=== PATIENT | male | born 1940 | race Caucasian/White ===

== ENCOUNTER 2017-03-22 22:06 | Emergency (ER) | payer MEDICARE, OTHER ==
--- NOTE | 2017-03-23 00:28 | ED Physician Documentation ---
History of Present Illness - Stated complaint Stated Complaint: R LEG PX - Chief complaint Chief Complaint: Ext Problem - History obtained from History obtained from: Patient - History of Present Illness Timing: Today Pain level max: 0 Pain level now: 0 - Additonal information Additional information: this evening, patient noticed a painless mass on his inner upper right thigh. He was mostly concerned that this might be a hematoma, as he is on blood filling medication including Eliquis and, once per week, plavix. Review of Systems Constitutional: reports: Reviewed and negative Cardiac: reports: Reviewed and negative Respiratory: reports: Reviewed and negative GI: reports: Reviewed and negative Musculoskeletal: reports: Reviewed and negative PD PAST MEDICAL HISTORY - Past Medical History Past Medical History: Yes Cardiovascular: Hypertension, Atrial fibrillation Respiratory: Pneumonia - Past Surgical History Past Surgical History: Yes Ortho: Knee replacement Cardiovascular: Coronary stent - Present Medications Home Medications: Ambulatory Orders Medication Instructions Recorded Confirmed Apixaban [Eliquis] 5 mg PO DAILY 06/06/16 06/12/16 Lisinopril 10 mg PO DAILY 06/06/16 06/12/16 Metoprolol Succinate 25 mg PO DAILY 06/06/16 06/12/16 oxyCODONE [Roxicodone] 5 mg PO DAILY 06/06/16 06/12/16 Carditone 06/12/16 - Allergies Allergies/Adverse Reactions: Allergies Allergy/AdvReac Type Severity Reaction Status Date / Time No Known Drug Allergies Allergy Verified 03/22/17 22:17 - Social History Does the pt smoke?: No Smoking Status: Never smoker Does the pt drink ETOH?: Yes Does the pt have substance abuse?: No - Immunizations Immunizations are current?: Yes - POLST Patient has POLST: No PD ED PE NORMAL - Vitals Vital signs reviewed: Yes - General General: Alert and oriented X 3, No acute distress, Well developed/nourished - Derm Derm: Normal color, Warm and dry, No rash - Extremities Extremities: No tenderness to palpate, Normal ROM s pain, No edema - Neuro Neuro: No motor deficit, No sensory deficit PD ED PE EXPANDED - Extremities Extremities: Other (on the right thigh, proximal anterior medial aspect, there is a robbery, mobile mass, approximately2 x 3 cm, entirely nontender, not hot to touch, no fluctuance, same color as the surrounding skin.) Results - Vitals Vitals: Oxygen O2 Source Room air PD MEDICAL DECISION MAKING - ED course Complexity details: considered differential, d/w patient, d/w family ED course: The mass with which the patient is chiefly concerned on today's ER visit appears to be most likely a lipoma. Departure - Departure Disposition: 01 Home, Self Care Clinical Impression: Leg mass Qualifiers: Laterality: right Qualified Code(s): R22.41 - Localized swelling, mass and lump , right lower limb Condition: Good Instructions: ED Leg Swelling Unilateral Follow-Up: Alfred Barahona MD [Primary Care Provider] - Discharge Date/Time: 03/23/17 01:10
[2017-03-23 01:14] VITALS: BP 188/102
== END 2017-03-23 01:10 | disposition home or self-care (01) ==
LOC: ED 22:06
DX: R22.41 Localized swelling, mass and lump, right lower limb (principal); Z79.01 Long term (current) use of anticoagulants; Z79.02 Long term (current) use of antithrombotics/antiplatelets; I10 Essential (primary) hypertension; I48.91 Unspecified atrial fibrillation; Z95.5 Presence of coronary angioplasty implant and graft
CPT/HCPCS: 99283